=== PATIENT | female | born 1970 | race Caucasian/White ===

== ENCOUNTER 2019-09-08 16:06 | Emergency (ER) | payer BC, OTHER ==
[2019-09-08 16:16] VITALS: BP 142/89; PULSE 91
[2019-09-08] MEDS ORDERED: Lidocaine 1% 10 ML MDV INJECT ONE (16:25)
--- NOTE | 2019-09-08 16:30 | EDM.PDOC ---
ED HPI GENERAL MEDICAL PROBLEM - General Chief Complaint: Lower Extremity Injury/Pain Stated Complaint: R FOOT LAC Time Seen by Provider: 09/08/19 16:14 Source of Information: Reports: Patient, RN Notes Reviewed History Limitations: Reports: No Limitations - History of Present Illness INITIAL COMMENTS - FREE TEXT/NARRATIVE: Patient is a 49-year-old female who presents to the ED for the evaluation of a foot injury. Patient notes that roughly 1/2-hour prior to arrival to the ER, she was at work, and dropped a clothing iron on her right foot. This resulted in a roughly 2 cm fairly linear laceration between the second and third toes on the dorsum of the right foot. She is still able to wiggle her toes, but range of motion is slightly limited due to the pain she is having. She states she is having some shooting pain that is going up her leg, but denies any sort of numbness or tingling in the toes. There is a mild amount of bruising noted to the area, and is not actively bleeding or gushing. Patient was still able to walk into the ER, but she states that she walked on her heel to get here. Patient thinks that she is up-to-date on her tetanus immunizations. Patient would rate her pain at an 8 out of 10 today. Right Foot Pain Score (Numeric/FACES): 8 - Related Data Allergies Allergy/AdvReac Type Severity Reaction Status Date / Time No Known Allergies Allergy Verified 08/18/13 12:35 Home Meds: Home Meds Acetaminophen [Tylenol] 650 mg PO Q6H #50 tablet 04/15/14 [Rx] Acetaminophen/oxyCODONE [Percocet 325-5 MG] 1 tab PO Q8H PRN #20 tablet [Rx] Docusate Sodium [Colace] 100 mg PO BID PRN #50 cap 04/15/14 [Rx] Ibuprofen [Motrin] 800 mg PO Q6H PRN #0 04/15/14 [Rx] Review of Systems - Review of Systems Review Of Systems: Comprehensive ROS is negative, except as noted in HPI. ED EXAM, GENERAL - Physical Exam Exam: See Below Exam Limited By: No Limitations General Appearance: Alert, WD/WN, No Apparent Distress Eye Exam: Bilateral Eye: EOMI, Normal Inspection, PERRL Respiratory/Chest: No Respiratory Distress, Lungs Clear, Normal Breath Sounds, No Accessory Muscle Use, Chest Non-Tender Cardiovascular: Normal Peripheral Pulses, Regular Rate, Rhythm, No Murmur Peripheral Pulses: 3+: Dorsalis Pedis (L), Dorsalis Pedis (R) Extremities: Normal Capillary Refill, Limited Range of Motion (of toes d/t pain in distal dorsal foot) Neurological: Alert, Oriented, Normal Cognition, No Motor/Sensory Deficits Psychiatric: Normal Affect, Normal Mood Skin Exam: Warm, Dry, Normal Color, No Rash, Wound/Incision (2cm fairly linear laceration to distal dorsum of R foot by 2nd to 3rd toe.) ED TRAUMA EXTREMITY PROCEDURES - Laceration/Wound Repair Right Distal Dorsal Foot Lac/Wound Length In cm: 2 Appearance: Superficial, Linear, Clean Distal NVT: Neuro & Vascular Intact, No Tendon Injury Anesthetic Type: Local Local Anesthesia - Lidocaine (Xylocaine): 1% Plain Local Anesthetic Volume: 4cc Skin Prep: Chlorhexidine (Hibiciens), Saline Exploration/Debridement/Repair: Wound Explored, In a Bloodless Field, Explored to Base, No Foreign Material Found Closed With: Sutures Suture Size: 4-0 # of Sutures: 5 Suture Type: Prolene, Interrupted, Simple Sterile Dressing Applied: Nurse Tetanus Status Addressed: Yes Complications: No Course - Vital Signs Last Recorded V/S: Last Vital Signs Temp 97.6 F 09/08/19 16:14 Pulse 91 09/08/19 16:14 Resp 16 09/08/19 16:14 BP 142/89 H 09/08/19 16:14 Pulse Ox 97 09/08/19 16:14 - Orders/Labs/Meds Meds: Medications Discontinued Medications Generic Name Dose Route Start Last Admin Trade Name Tania PRN Reason Stop Dose Admin Lidocaine HCl 10 ml 09/08/19 16:25 09/08/19 16:31 Xylocaine 1% INJECT 09/08/19 16:26 10 ml ONETIME ONE Administration - Re-Assessments/Exams Free Text/Narrative Re-Assessment/Exam: 09/08/19 17:05 X-rays were obtained, and Dr. Lozano did appreciate a distal fourth toe fracture within the distal phalanx of the fourth toe. Alignment remains close to anatomic, no other additional acute fracture or abnormality appreciated. Departure - Departure Time of Disposition: 16:30 Disposition: Home, Self-Care 01 Condition: Good Clinical Impression: Laceration of foot excluding toes Qualifiers: Encounter type: initial encounter Laterality: right Qualified Code(s): S91.311A - Laceration without foreign body, right foot, initial encounter Fracture of toe of right foot Qualifiers: Encounter type: initial encounter Toe: lesser toe Fracture type: closed Phalanx : distal Physeal involvement: not involving physis Qualified Code(s): S92.531A - Displaced fracture of distal phalanx of right lesser toe(s), initial encounter for closed fracture - Discharge Information *PRESCRIPTION DRUG MONITORING PROGRAM REVIEWED*: No *COPY OF PRESCRIPTION DRUG MONITORING REPORT IN PATIENT DANIELA: No Instructions: Sutures, Nelia, or Adhesive Wound Closure, [id number] Referrals: Irma Decker PA-C [Primary Care Provider] - Forms: ED Department Discharge Additional Instructions: You have been evaluated in the ED for your laceration. Sutures will need to stay in for 14 days (09/22/2019). You may return to the ED or any clinic for removal. Please keep this area clean and dry, you may cleanse with regular soap and water. No vigorous scrubbing. Watch out for signs of infection like increased redness, swelling, pain at the laceration site, or if you should develop any fevers or chills. Please return to ED if your symptoms change or worsen. Sepsis Event Note - Evaluation Sepsis Screening Result: No Definite Risk - Focused Exam Vital Signs: Vital Signs Temp Pulse Resp BP Pulse Ox 09/08/19 16:14 97.6 F 91 16 142/89 H 97 Date Exam was Performed: 09/08/19 Time Exam was Performed: 17:36
--- NOTE | 2019-09-08 16:56 | CR ---
Right foot: 4 views of the right foot were obtained. Comparison: No previous foot study is available. Spur is noted at the attachment of the Achilles tendon to the calcaneus. Slight bunion deformity is noted. Fracture is felt to be present within the distal phalanx of the 4th toe. Alignment remains close to anatomic. No additional fracture or other abnormality is appreciated. Impression: 1. Distal 4th toe fracture. 2. No other acute abnormality is seen. Diagnostic code #3 This report was dictated in MDT
== END 2019-09-08 17:41 | disposition home or self-care (01) ==
LOC: JD.ED 16:06
DX: S92.531A Displaced fracture of distal phalanx of right lesser toe(s), initial encounter for closed fracture (principal); S91.311A Laceration without foreign body, right foot, initial encounter; W45.8XXA Other foreign body or object entering through skin, initial encounter
CPT/HCPCS: 12001; 73630; 99283; J2001

== ENCOUNTER 2020-04-20 10:46 | Emergency (ER) | payer OTHER ==
[2020-04-20 10:59] VITALS: BP 140/97; PULSE 85
--- NOTE | 2020-04-20 11:14 | EDM.PDOC ---
ED HPI GENERAL MEDICAL PROBLEM - General Chief Complaint: Chest Pain Stated Complaint: CHEST PAIN Time Seen by Provider: 04/20/20 10:50 Source of Information: Reports: Patient History Limitations: Reports: No Limitations - History of Present Illness INITIAL COMMENTS - FREE TEXT/NARRATIVE: 50-year-old female with complaints of right chest wall pain. Patient states this started about 30 minutes prior to arrival and had resolved by the time patient was triaged in the emergency department. Patient denies any shortness of breath, cough, fever, chills, nausea, diaphoresis associated with this chest pain. 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 Patient is a half a day smoker for the past 20 years however she is trying to quit currently taking Chantix for this. Denies any history of hypertension or high cholesterol. And does not take any prescription medications. Chest Pain Score (Numeric/FACES): 0 - Related Data Allergies Allergy/AdvReac Type Severity Reaction Status Date / Time No Known Allergies Allergy Verified 04/20/20 10:59 Home Meds: Home Meds Acetaminophen [Tylenol] 650 mg PO Q6H #50 tablet 04/15/14 [Rx] Acetaminophen/oxyCODONE [Percocet 325-5 MG] 1 tab PO Q8H PRN #20 tablet 04/15/14 [Rx] Docusate Sodium [Colace] 100 mg PO BID PRN #50 cap 04/15/14 [Rx] Ibuprofen [Motrin] 800 mg PO Q6H PRN #0 04/15/14 [Rx] Past Medical History - Infectious Disease History Infectious Disease History: Reports: Chicken Pox - Past Surgical History Female Surgical History: Reports: Hysterectomy Social & Family History - Family History Family Medical History: No Pertinent Family History - Tobacco Use Tobacco Use Status *Q: Current Every Day Tobacco User Years of Tobacco use: 20 Packs/Tins Daily: 0.5 - Caffeine Use Caffeine Use: Reports: Coffee - Recreational Drug Use Recreational Drug Use: No ED ROS GENERAL - Review of Systems Review Of Systems: See Below Constitutional: Reports: No Symptoms. Denies: Fever, Chills, Diaphoresis HEENT: Reports: No Symptoms Respiratory: Reports: No Symptoms. Denies: Shortness of Breath, Cough Cardiovascular: Reports: Chest Pain, Palpitations. Denies: Dyspnea on Exertion, Edema, Lightheadedness, Orthopnea, Syncope Endocrine: Reports: No Symptoms GI/Abdominal: Reports: No Symptoms : Reports: No Symptoms Musculoskeletal: Reports: No Symptoms Skin: Reports: No Symptoms Neurological: Reports: No Symptoms Psychiatric: Reports: No Symptoms Hematologic/Lymphatic: Reports: No Symptoms Immunologic: Reports: No Symptoms ED EXAM, GENERAL - Physical Exam Exam: See Below Exam Limited By: No Limitations General Appearance: Alert, WD/WN, No Apparent Distress Eye Exam: Bilateral Eye: PERRL Ears: Hearing Grossly Normal Nose: Normal Inspection, Normal Mucosa, No Blood Throat/Mouth: Normal Inspection, Normal Voice, No Airway Compromise Head: Atraumatic, Normocephalic Neck: Normal Inspection, Supple, Non-Tender, Full Range of Motion Respiratory/Chest: No Respiratory Distress, Lungs Clear, Normal Breath Sounds, No Accessory Muscle Use. No: Chest Non-Tender (right pectoral wall tender with palpitation) Cardiovascular: Normal Peripheral Pulses, Regular Rate, Rhythm, No Edema, No Murmur Peripheral Pulses: 2+: Radial (L), Radial (R), Dorsalis Pedis (L), Dorsalis Pedis (R) GI/Abdominal: Normal Bowel Sounds, Soft, Non-Tender, No Distention (Female) Exam: Deferred Rectal (Female) Exam: Deferred Back Exam: Normal Inspection, Full Range of Motion Extremities: Normal Inspection, Normal Range of Motion, Non-Tender, No Pedal Edema, Normal Capillary Refill Neurological: Alert, Oriented, Normal Cognition Psychiatric: Normal Affect, Normal Mood Skin Exam: Warm, Dry, Intact, Normal Color, No Rash Lymphatic: No Adenopathy #1 Interpretation EKG Date: 04/20/20 Time: 10:54 Rhythm: NSR Rate (Beats/Min): 82 [place]: Normal P-Wave: Present QRS: Normal ST-T: Normal QT: Normal Comparison: NA - No Prior EKG EKG Interpretation Comments: EKG interpretation per Dr. Willingham: Borderline EKG, sinus rhythm at 82 bpm, early R wave transition consider right ventricular hypertrophy/septal hyp ertrophy pattern, occasional PVCs, left atrial hypertrophy, T wave flattening in aVL Course - Vital Signs Text/Narrative:: 50-year-old female presents to emergency department complaints of right sided chest pain. Patient denies any radiation to her jaw or down her arm. Denies any shortness of breath, nausea, diaphoresis or near syncope associated with this. Patient denies any recent history of trauma associated to the right chest wall. Patient states she did feel some palpitations at the head of the chest pain however this has resolved by the time she is triaged in the emergency department. Upon assessment patient has right chest wall pain with palpitation. Lungs are clear with auscultation. I have ordered a CBC, CMP, magnesium, CRP, troponin, EKG and a portable chest x-ray. Last Recorded V/S: Last Vital Signs Temp 97.7 F 04/20/20 10:54 Pulse 85 04/20/20 10:54 Resp 18 04/20/20 10:54 BP 140/97 H 04/20/20 10:54 Pulse Ox 96 04/20/20 10:54 - Orders/Labs/Meds Orders: Active Orders 24 hr Category Date Time Status EKG 12 Lead [EKG Documentation Completion] [RC] STAT Care 04/20/20 11:03 Active Labs: Laboratory Tests 04/20/20 04/20/20 Range/Units 10:59 10:59 WBC 7.52 (3.98-10.04) K/mm3 RBC 4.98 (3.98-5.22) M/mm3 Hgb 14.4 D (11.2-15.7) gm/dl Hct 44.8 (34.1-44.9) % MCV 90.0 (79.4-94.8) fl MCH 28.9 (25.6-32.2) pg MCHC 32.1 L (32.2-35.5) g/dl RDW Std Deviation 42.1 (36.4-46.3) fL Plt Count 235 D (182-369) K/mm3 MPV 10.3 (9.4-12.3) fl Neut % (Auto) 58.1 (34.0-71.1) % Lymph % (Auto) 30.2 (19.3-51.7) % [place] % (Auto) 6.4 (4.7-12.5) % Eos % (Auto) 4.4 (0.7-5.8) Baso % (Auto) 0.8 (0.1-1.2) % Neut # (Auto) 4.37 (1.56-6.13) K/mm3 Lymph # (Auto) 2.27 (1.18-3.74) K/mm3 [place] # (Auto) 0.48 H (0.24-0.36) K/mm3 Eos # (Auto) 0.33 (0.04-0.36) K/mm3 Baso # (Auto) 0.06 (0.01-0.08) K/mm3 Sodium 141 (136-145) mEq/L Potassium 3.9 (3.5-5.1) mEq/L Chloride 106 (98-107) mEq/L Carbon Dioxide 26 (21-32) mEq/L Anion Gap 12.9 (5-15) BUN 16 (7-18) mg/dL Creatinine 1.0 (0.55-1.02) mg/dL Est Cr Clr Drug Dosing 71.90 mL/min Estimated GFR (MDRD) 59 (>60) mL/min BUN/Creatinine Ratio 16.0 (14-18) Glucose 120 H (74-106) mg/dL Calcium 9.6 (8.5-10.1) mg/dL Magnesium 1.9 (1.8-2.4) mg/dl Total Bilirubin 0.3 (0.2-1.0) mg/dL AST 17 (15-37) U/L ALT 34 (14-59) U/L Alkaline Phosphatase 76 (46-116) U/L Troponin I < 0.017 (0.00-0.056) ng/mL C-Reactive Protein 0.7 (<1.0) mg/dL Total Protein 7.6 (6.4-8.2) g/dl Albumin 3.9 (3.4-5.0) g/dl Globulin 3.7 gm/dL Albumin/Globulin Ratio 1.1 (1-2) - Radiology Interpretation Free Text/Narrative:: Nothing acute is appreciated on portable chest x-ray. - Re-Assessments/Exams Free Text/Narrative Re-Assessment/Exam: 04/20/20 11:48 CBC and CMP are unremarkable other than a glucose of 120, troponin less than 0.017, 04/20/20 11:50 Nothing acute is appreciated. Chest pain likely musculoskeletal in origin. Patient will be discharged home with recommendation that she take ibuprofen or Tylenol for the discomfort. Departure - Departure Time of Disposition: 11:50 Disposition: Home, Self-Care 01 Condition: Good Clinical Impression: Atypical chest pain Instructions: Nonspecific Chest Pain, Adult, [id number] Referrals: Irma Decker PA-C [Primary Care Provider] - Forms: ED Department Discharge Additional Instructions: He was seen in the emergency department with complaints of chest pain to the right chest area., EKG, labs I suspect this pain to the right side your chest is musculoskeletal in origin. And chest x-ray were all were unremarkable at this time. Go home and rest. You can try to take Tylenol 650 mg every 4 hours as needed for the pain or ibuprofen 600 mg every 6 hours as needed for the pain. Should your condition worsen or change please return to the emergency department Sepsis Event Note (ED) - Evaluation Sepsis Screening Result: No Definite Risk - Focused Exam Vital Signs: Vital Signs Temp Pulse Resp BP Pulse Ox 04/20/20 10:54 97.7 F 85 18 140/97 H 96 - My Orders Last 24 Hours: My Active Orders 04/20/20 11:03 EKG 12 Lead [EKG Documentation Completion] [RC] STAT - Assessment/Plan Last 24 Hours: My Active Orders 04/20/20 11:03 EKG 12 Lead [EKG Documentation Completion] [RC] STAT
--- NOTE | 2020-04-20 11:48 | CR ---
Chest: Portable view of the chest was obtained. Comparison: No prior chest imaging is available. Findings: Heart size and mediastinum are normal. Lungs are clear with no acute parenchymal change. No acute bony abnormality is seen. Impression: 1. Nothing acute is seen on portable chest x-ray. Diagnostic code #1
== END 2020-04-20 12:05 | disposition home or self-care (01) ==
LOC: JD.ED 10:46
DX: R07.89 Other chest pain (principal); F17.210 Nicotine dependence, cigarettes, uncomplicated
CPT/HCPCS: 36415; 71045; 71045-26; 80053; 83735; 84484; 85025; 86140; 93005; 93010; 99284; 99285-25

== ENCOUNTER 2020-11-05 13:26 | Emergency (ER) | payer OTHER ==
[2020-11-05 13:36] VITALS: BP 149/93; PULSE 67
[2020-11-05] MEDS ORDERED: Sodium Chloride 0.9% 10 ML Syringe FLUSH PRN (14:00)
[2020-11-05] MEDS ORDERED: Ketorolac 30 MG/ML SDV IVPUSH SCH (14:00)
[2020-11-05] MEDS ORDERED: Acetaminophen 325 MG Tab PO ONE (14:00)
--- NOTE | 2020-11-05 14:22 | EDM.PDOC ---
ED HPI GENERAL MEDICAL PROBLEM - General Chief Complaint: Abdominal Pain Stated Complaint: LOW ABDOMINAL AND BACK PAIN SENT BY [facility] Time Seen by Provider: 11/05/20 13:48 Source of Information: Reports: Patient, RN Notes Reviewed - History of Present Illness INITIAL COMMENTS - FREE TEXT/NARRATIVE: 50 yr female with onset of R back pain that started about 3 days ago. Has been off and on but worse today, back pain radiates to R flank and R groin. No nausea, vomiting, fever chills or voiding sx. Also having neck pain, no known injury,. 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: Psychiatric History: Reports: Depression Endocrine/Metabolic History: Reports: Obesity/BMI 30+ Dermatologic History: Reports: Eczema - Infectious Disease History Infectious Disease History: Reports: Chicken Pox - Past Surgical History Female Surgical History: Reports: Section, Hysterectomy, Other (See Below) Other Female Surgeries/Procedures: Bladder Sling Social & Family History - Family History Family Medical History: No Pertinent Family History - Tobacco Use Tobacco Use Status *Q: Current Every Day Tobacco User Years of Tobacco use: 20 Packs/Tins Daily: 1 - Caffeine Use Caffeine Use: Reports: Coffee - Recreational Drug Use Recreational Drug Use: No ED ROS GENERAL - Review of Systems Review Of Systems: See Below Constitutional: Denies: Fever HEENT: Reports: No Symptoms Respiratory: Denies: Shortness of Breath Cardiovascular: Denies: Chest Pain GI/Abdominal: Reports: Abdominal Pain. Denies: Nausea, Vomiting : Reports: No Symptoms Musculoskeletal: Reports: Back Pain Neurological: Reports: No Symptoms ED EXAM, GI/ABD - Physical Exam Exam: See Below General Appearance: Alert, Mild Distress Head: Atraumatic Neck: Supple Respiratory/Chest: No Respiratory Distress, Lungs Clear, Normal Breath Sounds Cardiovascular: Regular Rate, Rhythm GI/Abdominal Exam: Soft, Non-Tender. No: Guarding, Rebound Back Exam: CVA Tenderness (R) (mild), Other (Tender R low back) Neurological: Alert, Oriented, No Motor/Sensory Deficits Skin Exam: Warm, Dry, Normal Color Course - Vital Signs Last Recorded V/S: Last Vital Signs Temp 97.4 F 11/05/20 13:32 Pulse 67 11/05/20 13:32 Resp 16 11/05/20 13:32 BP 149/93 H 11/05/20 13:32 Pulse Ox 97 11/05/20 13:32 - Orders/Labs/Meds Orders: Active Orders 24 hr Category Date Time Status Peripheral IV Care [RC] . DIRECTED Care 11/05/20 14:01 Active Abdomen Pelvis wo Cont [CT] Stat Exams 11/05/20 13:58 Taken Ketorolac [Toradol] Med 11/05/20 14:00 Active 30 mg IVPUSH ONETIME Sodium Chloride 0.9% [Saline Flush] Med 11/05/20 14:00 Active 10 ml FLUSH ASDIRECTED PRN Peripheral IV Insertion Adult [OM.PC] Stat Oth 11/05/20 14:00 Ordered Medication Orders Ketorolac Tromethamine (Ketorolac 30 Mg/Ml Sdv) 30 mg IVPUSH ONETIME URBANO Last Admin: 11/05/20 14:10 Dose: 30 mg Documented by: DIONNA Sodium Chloride (Sodium Chloride 0.9% 10 Ml Syringe) 10 ml FLUSH ASDIRECTED PRN PRN Reason: Keep Vein Open Last Admin: 11/05/20 14:10 Dose: 10 ml Documented by: DIONNA Labs: Laboratory Tests 11/05/20 11/05/20 11/05/20 Range/Units 14:12 14:12 15:07 WBC 8.15 (3.98-10.04) K/mm3 RBC 4.70 (3.98-5.22) M/mm3 Hgb 13.8 (11.2-15.7) gm/dl Hct 43.0 (34.1-44.9) % MCV 91.5 (79.4-94.8) fl MCH 29.4 (25.6-32.2) pg MCHC 32.1 L (32.2-35.5) g/dl RDW Std Deviation 43.9 (36.4-46.3) fL Plt Count 226 (182-369) K/mm3 MPV 10.3 (9.4-12.3) fl Neut % (Auto) 53.0 (34.0-71.1) % Lymph % (Auto) 36.2 (19.3-51.7) % [place] % (Auto) 7.1 (4.7-12.5) % Eos % (Auto) 2.9 (0.7-5.8) Baso % (Auto) 0.7 (0.1-1.2) % Neut # (Auto) 4.31 (1.56-6.13) K/mm3 Lymph # (Auto) 2.95 (1.18-3.74) K/mm3 [place] # (Auto) 0.58 H (0.24-0.36) K/mm3 Eos # (Auto) 0.24 (0.04-0.36) K/mm3 Baso # (Auto) 0.06 (0.01-0.08) K/mm3 C-Reactive Protein <0.2 (<1.0) mg/dL Urine Color Yellow (Yellow) Urine Appearance Clear (Clear) Urine pH 5.5 (5.0-8.0) Ur Specific [place] 1.025 (1.005-1.030) Urine Protein Negative (Negative) Urine Glucose (UA) Negative (Negative) Urine Ketones Negative (Negative) Urine Occult Blood Negative (Negative) Urine Nitrite Negative (Negative) Urine Bilirubin Negative (Negative) Urine Urobilinogen 0.2 (0.2-1.0) Ur Leukocyte Esterase Negative (Negative) Meds: Medications Generic Name Dose Route Start Last Admin Trade Name Freq PRN Reason Stop Dose Admin Ketorolac Tromethamine 30 mg 11/05/20 14:00 11/05/20 14:10 Ketorolac 30 Mg/Ml Sdv IVPUSH 30 mg ONETIME URBANO Administration Sodium Chloride 10 ml 11/05/20 14:00 11/05/20 14:10 Sodium Chloride 0.9% 10 Ml Syringe FLUSH 10 ml ASDIRECTED PRN Administration Keep Vein Open Discontinued Medications Generic Name Dose Route Start Last Admin Trade Name Tania PRN Reason Stop Dose Admin Acetaminophen 975 mg 11/05/20 14:00 11/05/20 14:10 Acetaminophen 325 Mg Tab PO 11/05/20 14:01 975 mg NOW ONE Administration - Re-Assessments/Exams Free Text/Narrative Re-Assessment/Exam: 11/05/20 15:56 CT of abd/pelvis does not reveal acute findings. WBC, CRP, UA nl. Feels better after torodol IV, tylenol PO. Departure - Departure Time of Disposition: 15:45 Disposition: Home, Self-Care 01 Condition: Fair Clinical Impression: Back pain Qualifiers: Back pain location: low back pain Chronicity: acute Back pain laterality: right Sciatica presence: without sciatica Qualified Code(s): M54.5 - Low back pain Abdominal pain Qualifiers: Abdominal location: right lower quadrant Qualified Code(s): R10.31 - Right lower quadrant pain - Discharge Information Instructions: Chronic Back Pain Referrals: Hillary Greene MD [Primary Care Provider] - Forms: ED Department Discharge Additional Instructions: Motrin or ibuprofen 600 mg 3 times daily with food. Tylenol in between doses for extra pain relief. Alternate ice and heat as needed. Follow up clinic if not much better within 2 to 3 days as expected. Return to ED as needed if symptoms worsening in any way. Sepsis Event Note (ED) - Evaluation Sepsis Screening Result: No Definite Risk - Focused Exam Vital Signs: Vital Signs Temp Pulse Resp BP Pulse Ox 11/05/20 13:32 97.4 F 67 16 149/93 H 97 - My Orders Last 24 Hours: My Active Orders 11/05/20 13:58 Abdomen Pelvis wo Cont [CT] Stat 11/05/20 14:00 Ketorolac [Toradol] 30 mg IVPUSH ONETIME Sodium Chloride 0.9% [Saline Flush] 10 ml FLUSH ASDIRECTED PRN Peripheral IV Insertion Adult [OM.PC] Stat 11/05/20 14:01 Peripheral IV Care [RC] . DIRECTED - Assessment/Plan Last 24 Hours: My Active Orders 11/05/20 13:58 Abdomen Pelvis wo Cont [CT] Stat 11/05/20 14:00 Ketorolac [Toradol] 30 mg IVPUSH ONETIME Sodium Chloride 0.9% [Saline Flush] 10 ml FLUSH ASDIRECTED PRN Peripheral IV Insertion Adult [OM.PC] Stat 11/05/20 14:01 Peripheral IV Care [RC] . DIRECTED
--- NOTE | 2020-11-06 11:52 | CT ---
CT abdomen and pelvis Technique: Multiple axial sections were obtained from above the dome of the diaphragm inferiorly through the pubic symphysis. Intravenous and oral contrast were not utilized. Study has been performed as a ureteral stone protocol. Comparison: Prior abdominal x-ray of 04/13/14. Findings: Visualized lung bases show nothing acute. Cyst is noted within the left lobe of the liver measuring about 1.6 cm. Second minimal area of diminished density s is seen within the left lobe measuring about 4 mm which is too small to characterize. Gallbladder contains no calcified gallstones. Spleen size is normal. Adrenal glands show no nodule. Pancreas is within normal limits. Single calcification is noted within both kidneys. Largest calcification measures approximately 8 mm. No ureteral dilatation or ureteral stone is seen. Abdominal aorta shows slight atherosclerotic calcification with no aneurysm. No retroperitoneal adenopathy is seen. Appendix is seen which is normal. No pelvic mass or adenopathy is seen. No bladder calculi are noted. Uterus is not seen compatible with previous hysterectomy. No free fluid or inflammatory change is appreciated. Bone window settings were reviewed which show degenerative apophyseal change at L4-5 with minimal spondylolisthesis. Vacuum phenomenon is noted within both sacroiliac joints. No acute osseous abnormality is appreciated. Impression: 1. One cyst within the left lobe of the liver with a second smaller abnormality which is too small to characterize. Statistically this is most likely due to a second cyst. 2. Small nonobstructing calculus within both kidneys. No ureteral dilatation or ureteral stone is seen. 3. Other findings believed to be incidental as noted above. Diagnostic code #2 I agree with preliminary report from [facility], finalized on 11/05/20, 3:53 PM CDT, code 1
== END 2020-11-05 15:58 | disposition home or self-care (01) ==
LOC: JD.ED 13:26
DX: R10.31 Right lower quadrant pain (principal); M54.5 Low back pain; E66.9 Obesity, unspecified; Z68.31 Body mass index [BMI] 31.0-31.9, adult; Z72.0 Tobacco use
CPT/HCPCS: 36415; 74176; 81003; 85025; 86140; 99284; A9270; J1885